=== PATIENT | male | born 1960 | race African-American/Black ===

== ENCOUNTER 2024-06-28 06:48 | Day surgery (SDC) | payer OTHER ==
[2024-06-22 14:15] VITALS: BMI 34.8
[2024-06-28 11:34] VITALS: TEMP 97.9
[2024-06-28 11:38] VITALS: BP 122/87; PULSE 68; RESP 13
== END 2024-06-28 12:00 | disposition home or self-care (01) ==
LOC: JASU-ENDO 06:48
PROVIDERS: ATTEND Internal Medicine Gastroenterology
PROC: 0DBP8ZX Excision of Rectum, Via Natural or Artificial Opening Endoscopic, Diagnostic (ICD-10-PCS; principal; 2024-06-28 11:00)
DX: Z12.11 Encounter for screening for malignant neoplasm of colon (principal); D12.8 Benign neoplasm of rectum; K57.30 Diverticulosis of large intestine without perforation or abscess without bleeding
CPT/HCPCS: 88305-TC